=== PATIENT | female | born 1985 | race African-American/Black ===

== ENCOUNTER 2017-05-25 22:59 | Emergency (ER) | payer MEDICAID, MEDICARE, OTHER ==
[2017-05-25 23:00] VITALS: BP 128/65; PULSE 78; RESP 16; TEMP 98.6; O2SAT 100
--- NOTE | 2017-05-26 00:23 | PD ---
HPI Chief Complaint: Injury Time Seen by Provider: 00:12 Travel History International Travel<30 days: No Contact w/Intl Traveler<30days: No Traveled to known affect area: No History of Present Illness HPI 31-year-old female here for a left great toe partial nail avulsion secondary to trauma. Patient states she came to the ER because it did not look right and was bleeding. History Past Medical Histgory Hx Cancer: No Hx Chemotherapy: No Hx Radiation Therapy: No Social History Alcohol Use: No Tobacco Use: Yes (5CIG A DAY ) Allergies-Medications (Allergen,Severity, Reaction): Coded Allergies: amoxicillin (Unverified Allergy, Severe, HIVES, SWELLING, 04/16/17) Reported Meds & Prescriptions Reported Meds & Active Scripts Active No Active Prescriptions or Reported Medications Review of Systems Except as stated in HPI: all other systems reviewed are Neg Skin: Positive Change in nails Physical Exam Narrative GENERAL: Well-nourished, well-developed pleasant female SKIN: Focused skin assessment warm/dry. Left great toe with crusting blood and a partially avulsed distal portion of the nail. No exudate or serous fluid noted. HEAD: Normocephalic. EYES: No scleral icterus. No injection or drainage. CARDIOVASCULAR: Regular rate and rhythm without murmurs, gallops, or rubs. RESPIRATORY: Breath sounds equal bilaterally. No accessory muscle use. GASTROINTESTINAL: Abdomen soft, non-tender, nondistended. MUSCULOSKELETAL: No cyanosis, or edema. left great toe without pain, tenderness , or edema except at affected portion of the nail. FROM of toes without crepitus. Data Data Last Documented VS Vital Signs Date Time Temp Pulse Resp B/P (MAP) Pulse Ox O2 Delivery O2 Flow Rate FiO2 05/25/17 23:00 98.6 78 16 128/65 (86) 100 Room Air MDM Medical Screen Exam Complete: Yes Emergency Medical Condition: No Differential Diagnosis Left great toenail avulsion Narrative Course 31-year-old pleasant female presents to the ER with a left great toenail avulsion. She presents to the ED because she was concerned about the 'way it looks' and concern for infection. Exam demonstrated a partially avulsed toenail with bleeding controlled without exudate and had only mild tenderness to the nail upon palpation. I reassured the patient and explained the proper care for her toenail, that is, to keep the nail clean and dry and return to her primary care physician if she noted any pus, swelling, or increased pain. A medical screening exam was performed: At the time of evaluation the presenting medical condition was determined not to be of an emergent nature. The patient was given the option of receiving additional care, but declined. Patient was given options for additional community resources from which to obtain care. The Patient Has Been advised to seek medical attention for their presenting complaint. The patient has been advised to return to the ER at any time if an emergent condition develops. Primary Impression: Nail avulsion, toe Qualified Codes: S91.209A - Unspecified open wound of unspecified toe(s) with damage to nail, initial encounter Additional Instructions: Keep toenail dry and clean. Return to PCP if worsening or persistent pain. Scripts No Active Prescriptions or Reported Meds Disposition: 01 DISCHARGE HOME Condition: Stable Sameera Carrion May 26, 2017 00:23
== END 2017-05-26 10:15 | disposition left against medical advice (07) ==
LOC: NEPD 22:59
DX: S91.209A Unspecified open wound of unspecified toe(s) with damage to nail, initial encounter (principal); X58.XXXA Exposure to other specified factors, initial encounter
CPT/HCPCS: 99281

== ENCOUNTER 2017-06-14 11:21 | Emergency (ER) | payer MEDICAID, MEDICARE ==
--- NOTE | 2017-06-14 13:44 | PD ---
HPI Chief Complaint Painful contractions Date Seen: Jun 14, 2017 Time Seen: 12:15 (Camila Stoner MD R1) Travel History International Travel<30 Days: No Contact w/Intl Traveler<30Days: No (Camila Stoner MD R1) History of Present Illness HPI Patient is a 31-year-old at 38 weeks. States that she started having contractions 5-6 minutes apart last night, no fluid leakage. Denies vaginal bleeding. Endorses movement. GBS negative. States that she had bleeding early in . All subsequent ultrasounds have been normal. Weeks Gestation: 38 Para: 5 : 6 (Camila Stoner MD R1) History Past Medical History Medical History: Denies Significant Hx (Camila Stoner MD) Obstetric History Obstetric History Vaginal deliveries 5:2014, 2013, 2006, 2003, 2003. No history of or other complications. (Camila Stoner MD) Family History Family History: Negative (Camila Stoner MD) Social History Alcohol Use: No Tobacco Use: Yes (smoking for 3.7 pack years) Substance Abuse: No (Camila Stoner MD) Allergies-Medications (Allergen,Severity, Reaction): Coded Allergies: amoxicillin (Unverified Allergy, Severe, HIVES, SWELLING, 04/16/17) Home Meds No Active Prescriptions or Reported Meds Physical Exam Narrative GENERAL: Well-nourished, well-developed patient. SKIN: Warm and dry. HEAD: Normocephalic and atraumatic. EYES: No scleral icterus. No injection or drainage. CARDIOVASCULAR: Regular rate and rhythm without murmurs, gallops, or rubs. RESPIRATORY: Breath sounds equal bilaterally. No accessory muscle use. ABDOMEN/GI: Abdomen soft, non-tender, bowel sounds present, no rebound, no guarding Gravid to 38weeks size GENITOURINARY: External Genitalia: intact and normal in appearance Cervix: Posterior Dilatation: 1cm Effacement: Thick Station: -2 Presentation: Cephalic Membranes: Intact Uterine Contractions: Irregular FHT's: Category: 1 Baseline: 140 Reactive: Yes Variability: Moderate Decels: None EXTREMITIES: No cyanosis or edema. NEUROLOGICAL: Awake and alert. Motor and sensory grossly within normal limits. Normal speech. (Camila Stoner MD R1) MDM Interpretation(s) Patient is a at 38 weeks presenting with painful contractions. On cervical exam 1 cm/thick/-2. FHTs reassuring. Not in active labor. Will discharge home with labor precautions. Plan D/C today. (Camila Stoner MD R1) Diagnosis Diagnosis: Primary Impression: with 38 completed weeks gestation Disposition: 01 DISCHARGE HOME Condition: Stable Scripts No Active Prescriptions or Reported Meds Collaborating MD Comments Seen and examined with resident Agree with management (Digna Gutierrez MD) Camila Stoner MD R1 Jun 14, 2017 13:44 Digna Gutierrez MD Jun 17, 2017 09:02
== END 2017-06-14 14:04 | disposition home or self-care (01) ==
LOC: HOBED 11:21
DX: O26.93 Pregnancy related conditions, unspecified, third trimester (principal); O99.333 Smoking (tobacco) complicating pregnancy, third trimester; Z3A.38 38 weeks gestation of pregnancy

== ENCOUNTER 2017-06-15 15:10 | Emergency (ER) | payer MEDICAID ==
[~2017-06-15] VITALS: Ht 160 cm; Wt 93.9 kg
--- NOTE | 2017-06-15 15:44 | PD ---
HPI Chief Complaint 38 weeks and 1 day ; Uterine contractions Travel History International Travel<30 Days: No Contact w/Intl Traveler<30Days: No Known Affected Area: No History of Present Illness HPI Pt is a 31 yo at 38 weeks and 1 day. Pt presents with uterine contractions stronger and more frequent today. Care with Wendy Rubi. Pt states she was seen on OB ED yesterday and told she was 4cm dilated. Denies any vaginal bleeding or discharge. Active movements. Weeks Gestation: 38 Para: 5 : 6 History Past Medical History Narrative Medical Asthma Obstetric History Obstetric History 5 prior term incomplcated vaginal deliveries. Largest was 8lbs at Past Surgical History Narrative Surgical D&C Family History Family History: Negative Social History Alcohol Use: No Tobacco Use: Yes (09/05 PPD) Substance Abuse: No Allergies-Medications (Allergen,Severity, Reaction): Coded Allergies: amoxicillin (Unverified Allergy, Severe, HIVES, SWELLING, 04/16/17) Home Meds No Active Prescriptions or Reported Meds Review of Systems Except as stated in HPI: all other systems reviewed are Neg Physical Exam Narrative GENERAL: Well-nourished, well-developed patient. SKIN: Warm and dry. HEAD: Normocephalic and atraumatic. EYES: No scleral icterus. No injection or drainage. ENT: No nasal drainage noted. Mucous membranes pink. Airway patent. NECK: Supple, trachea midline. No JVD. CARDIOVASCULAR: Regular rate and rhythm without murmurs, gallops, or rubs. RESPIRATORY: Breath sounds equal bilaterally. No accessory muscle use. BREASTS: Bilateral exam showed no masses , no retractions, no nipple discharge. ABDOMEN/GI: Abdomen soft, non-tender, bowel sounds present, no rebound, no guarding Gravid to [38] weeks size GENITOURINARY: External Genitalia: intact and normal in appearance Cervix: [soft] Dilatation: [2-3cm] Effacement: [50%] Station: [-] Presentation: [vertex-] Membranes: [intact] Uterine Contractions: [8 minutes] FHT's: Category: [1] Baseline: [-] Reactive: [-] Variability: [-] Decels: [none] EXTREMITIES: No cyanosis or edema. BACK: Nontender without obvious deformity. No CVA tenderness. NEUROLOGICAL: Awake and alert. Motor and sensory grossly within normal limits. Five out of 5 muscle strength in all muscle groups. Normal speech. Data Data Vital Signs Reviewed: Yes [facility] Medical Record Reviewed: Yes Plan Pt is a 31 yo at 38 weeks and 1 day with c/o uterine contractions. Cervical exam is 2-3 /50%/-3, and contractions every 8 minutes. Pt re-examined again after more than 1 hour. Cervix unchanged 2-3cm/50/-2 Contractions spaced out even more. Plan: Prodromal labor. Will DC home with labor precautions. Diagnosis Diagnosis: Primary Impression: 38 weeks gestation of Additional Impression: False labor after 37 completed weeks of gestation Disposition: DISCHARGE HOME Scripts No Active Prescriptions or Reported Meds Damian Dorado MD Jun 15, 2017 15:44
== END 2017-06-15 17:34 | disposition home or self-care (01) ==
LOC: HOBED 15:10
DX: O47.1 False labor at or after 37 completed weeks of gestation (principal); Z3A.38 38 weeks gestation of pregnancy; O99.333 Smoking (tobacco) complicating pregnancy, third trimester; O26.93 Pregnancy related conditions, unspecified, third trimester; J45.909 Unspecified asthma, uncomplicated
CPT/HCPCS: 59025

== ENCOUNTER 2017-06-19 19:59 | Emergency (ER) | payer MEDICAID ==
--- NOTE | 2017-06-19 21:12 | PD ---
HPI Chief Complaint c/o CTXs no bleeding or SROM Date Seen: Jun 19, 2017 Time Seen: 21:00 Travel History International Travel<30 Days: No Contact w/Intl Traveler<30Days: No Known Affected Area: No History of Present Illness HPI 31 y/o BF 38 wks c/o CTXs , no bleeding or SROM , FHR reactive CTXs q 3-4 min Weeks Gestation: 38 Para: 5 : 6 History Obstetric History Obstetric History 5 vag del Social History Alcohol Use: No Tobacco Use: No Substance Abuse: No Allergies-Medications (Allergen,Severity, Reaction): Coded Allergies: amoxicillin (Unverified Allergy, Severe, HIVES, SWELLING, 04/16/17) Home Meds No Active Prescriptions or Reported Meds Review of Systems General / Constitutional: No: Fever, Weight Gain, Chills, Other Eyes: No: Diploplia, Blurred Vision, Visual changes, Pain, Photophobia HENT: No: Headaches, Vertigo, Lightheadedness Cardiovascular: No: Irregular Rhythm, Chest Pain or Discomfort, Palpitations, Tachycardia, Syncope, Varicosities, Edema, Cyanosis Respiratory: No: Cough, Short of Breath, Other Gastrointestinal: Abdominal Pain, No: Nausea, Vomiting, Diarrhea Genitourinary: No: Decreased Urinary Output, Oliguria Musculoskeletal: No: Limited ROM, Weakness, Cramping, Edema, Pain Skin: No Rash, No Itching, No Dryness, No Lumps, No Change in Pigmentation, No Change in Nails, No Alopecia, No Lesions Neurologic: No: Weakness, Dizziness, Syncope, Focal Abnormalities, Coordination Problem, Headache, Slurred Speech, Seizures Psychiatric: No: Depression, Suicidal Ideations, Homicidal Ideation Endocrine: No: Heat Intolerance, Cold Intolerance, Polydipsia, Polyuria, Other Physical Exam Narrative GENERAL: Well-nourished, well-developed patient. SKIN: Warm and dry. HEAD: Normocephalic and atraumatic. EYES: No scleral icterus. No injection or drainage. ENT: No nasal drainage noted. Mucous membranes pink. Airway patent. NECK: Supple, trachea midline. No JVD. CARDIOVASCULAR: Regular rate and rhythm without murmurs, gallops, or rubs. RESPIRATORY: Breath sounds equal bilaterally. No accessory muscle use. BREASTS: Bilateral exam showed no masses , no retractions, no nipple discharge. ABDOMEN/GI: Abdomen soft, non-tender, bowel sounds present, no rebound, no guarding Gravid to [-38] weeks size Fundal Height: [-38] GENITOURINARY: External Genitalia: intact and normal in appearance BUS glands: [-] Cervix: [no change-] Dilatation: [2-] Effacement: [thick-] Station: [-3] Presentation: [vtx-] Membranes: [intact ] Uterine Contractions: [-q 3-4 min] FHT's: Category: [-1] Baseline: [133-] Reactive: [yes-] Variability: [mod-] Decels: [-0] EXTREMITIES: No cyanosis or edema. BACK: Nontender without obvious deformity. No CVA tenderness. NEUROLOGICAL: Awake and alert. Motor and sensory grossly within normal limits. Five out of 5 muscle strength in all muscle groups. Normal speech. Data Data Orders Orders Meperidine Inj (Demerol Inj) (06/19/17 21:15) Promethazine Inj (Phenergan Inj) (06/19/17 21:15) MDM Interpretation(s) 38 wk IUP with CTXs but no change in cervix since last check , NST reactive , CTXs q 3-4 min Plan Demerol 50 mg / phenergan 25 mg IM , home to rest return for worsening pain Diagnosis Diagnosis: Primary Impression: False labor after 37 weeks of gestation without delivery Disposition: 01 DISCHARGE HOME Condition: Stable Scripts No Active Prescriptions or Reported Meds John Leung II, MD Jun 19, 2017 21:12
[2017-06-19] MEDS ORDERED: MEPERIDINE HCL 50 MG/ML VIAL IM ONE (21:15)
[2017-06-19] MEDS ORDERED: PROMETHAZINE INJ 25 MG/ML VIAL IM ONE (21:15)
== END 2017-06-19 22:42 | disposition home or self-care (01) ==
LOC: HOBED 19:59
DX: O47.1 False labor at or after 37 completed weeks of gestation (principal); Z3A.38 38 weeks gestation of pregnancy
CPT/HCPCS: 59025; 96372; 99284; J2175; J2550

== ENCOUNTER 2017-06-23 13:09 | Inpatient (IN) | payer MEDICAID ==
[2017-06-23] VITALS (11 sets, daily range): BP systolic 109–126; BP diastolic 52–69; PULSE 66–106; RESP 18–20; TEMP 98.2–98.8
[~2017-06-23] VITALS: Ht 165.1 cm; Wt 98.0 kg
[2017-06-23] MEDS ORDERED: CITRIC ACID-SODIUM CITRATE LIQ 30 ML UDC PO SCH (14:15)
[2017-06-23] MEDS ORDERED: SODIUM CHLORID 0.9% 500 ML INJ 500 ML IV PRN (14:15)
[2017-06-23] MEDS ORDERED: LIDOCAINE HCL 1% 50 ML VIAL I-DERMAL PRN (14:15)
[2017-06-23] MEDS ORDERED: MINERAL OIL 10 ML VIAL TOPICAL PRN (14:15)
[2017-06-23] MEDS ORDERED: LIDOCAINE HCL 1% 50 ML VIAL INFIL PRN (14:15)
[2017-06-23] MEDS ORDERED: ONDANSETRON HCL 4 MG/2 ML VIAL IV PUSH PRN (14:15)
--- NOTE | 2017-06-23 14:17 | PD ---
HPI Chief Complaint 31 y/o F , at 39w3, presents s/p SROM at 3AM this morning. Fluid was clear. Pt feels cxns q10 minutes. +FM Pt has had care w/ Wendy Robles. Date Seen: Jun 23, 2017 (Sushma Moralez MD R2) Travel History International Travel<30 Days: No Contact w/Intl Traveler<30Days: No Known Affected Area: No (Sushma Moralez MD) History Past Medical History Medical History: Denies Significant Hx (Sushma Moralez MD) Obstetric History Obstetric History care w/ wendy robles subchorionic bleed in 1st trimester x 5 - last VD in 2014 - biggest baby 8lb (Sushma Moralez MD) Past Surgical History Surgical History: No Previous Surgery (Sushma Moralez MD) Family History Family History: Negative (Sushma Moralez MD) Social History Narrative Social History smoked 1/2 ppd during this (starting at 6months) marijuana BEFORE denies alcohol use denies other drug use (Sushma Moralez MD) Allergies-Medications (Allergen,Severity, Reaction): Coded Allergies: amoxicillin (Unverified Allergy, Severe, HIVES, SWELLING, 06/23/17) Home Meds Reported Medications Ranitidine (Zantac) 150 Mg Tab, 150 MG PO BID for Reduce Stomach Acid, #60 TAB 0 Refills 06/23/17 Review of Systems Except as stated in HPI: all other systems reviewed are Neg (Sushma Moralez MD) Physical Exam Narrative GENERAL: Well-nourished, well-developed patient. SKIN: Warm and dry. HEAD: Normocephalic and atraumatic. EYES: No scleral icterus. No injection or drainage. ENT: No nasal drainage noted. Mucous membranes pink. Airway patent. NECK: Supple, trachea midline. No JVD. CARDIOVASCULAR: Regular rate and rhythm without murmurs, gallops, or rubs. RESPIRATORY: Breath sounds equal bilaterally. No accessory muscle use. BREASTS: Bilateral exam showed no masses , no retractions, no nipple discharge. ABDOMEN/GI: Abdomen soft, non-tender, bowel sounds present, no rebound, no guarding Gravid to [-] weeks size Fundal Height: [-] GENITOURINARY: External Genitalia: intact and normal in appearance BUS glands: [-] Cervix: [-] Dilatation: [-] Effacement: [-] Station: [-] Presentation: [-] Membranes: [intact or ruptured] Uterine Contractions: [-] FHT's: Category: [-] Baseline: [-] Reactive: [-] Variability: [-] Decels: [-] EXTREMITIES: No cyanosis or edema. BACK: Nontender without obvious deformity. No CVA tenderness. NEUROLOGICAL: Awake and alert. Motor and sensory grossly within normal limits. Five out of 5 muscle strength in all muscle groups. Normal speech. (Sushma Moralez MD R2) Data Data Vital Signs Reviewed: Yes Orders Orders Ob (2e) Additional Admit Info (06/23/17 13:53) Admit To Inpatient (06/23/17 ) Code Status (06/23/17 14:15) Vital Signs (Adult) .Per protocol (06/23/17 14:15) Heart (06/23/17 14:15) Amnioinfusion (06/23/17 14:15) Urinary Catheter Management .ONCE (06/23/17 14:15) Diet Npo (06/23/17 Dinner) Lactated Ringer's 1000 Ml Inj (Lr 1000 M (06/23/17 14:15) Lactated Ringer's 1000 Ml Inj (Lr 1000 M (06/23/17 14:15) Sodium Chlorid 0.9% 500 Ml Inj (Ns 500 M (06/23/17 14:15) Sodium Chlor 0.9% 1000 Ml Inj (Ns 1000 M (06/23/17 14:35) Lidocaine 1% Inj (50 Ml) (Xylocaine 1% I (06/23/17 14:15) Citric Acid-Sodium Citrate Liq (Bicitra (06/23/17 14:15) Ondansetron Inj (Zofran Inj) (06/23/17 14:15) Fentanyl Inj (Fentanyl Inj) (06/23/17 14:15) Fentanyl Inj (Fentanyl Inj) (06/23/17 14:15) Complete Blood Count With Diff (06/23/17 14:15) Hold Clot (06/23/17 14:15) Abo/Rh Blood Type (06/23/17 14:15) Urinalysis - C+S If Indicated (06/23/17 14:15) Resp Oxygen Non Rebreathe Mask (06/23/17 ) ^ Epidural / Intrathecal Infus (06/23/17 14:15) Oxytocin 30 Units-500ml Premix (Pitocin (06/23/17 14:15) Lidocaine 1% Inj (50 Ml) (Xylocaine 1% I (06/23/17 14:15) Light Mineral Oil (Muri-Lube Oil) (06/23/17 14:15) Inpatient Certification (06/23/17 ) Specimen To Be Collected PRN (06/23/17 14:15) (Sushma Moralez MD R2) [facility] Medical Record Reviewed: Yes (Sushma Moralez MD R2) Attending Attestation Patient seen and evaluated with resident under direct supervision, agree with assessment and plan. (Vel Lanza MD) Sushma Moralez MD R2 Jun 23, 2017 14:17 Vel Lanza MD Jun 23, 2017 17:24
[2017-06-23] MEDS ORDERED: LACTATED RINGER'S 1000 ML INJ 1,000 ML IV PRN (14:30)
[2017-06-23] MEDS ORDERED: OXYTOCIN 30 UNITS-500ML PREMIX 500 ML IV ONE (14:30)
[2017-06-23] MEDS ORDERED: LACTATED RINGER'S 1000 ML INJ 1,000 ML IV SCH (14:30)
--- NOTE | 2017-06-23 14:30 | HHI.HP ---
History & Physical H&P HPI HPI Chief Complaint 31 y/o F , at 39w3, presents s/p SROM at 3AM this morning. Fluid was clear. Pt feels cxns q10 minutes. +FM Pt has had care w/ Wendy Robles. Date Seen: Jun 23, 2017 Travel History International Travel<30 Days: No Contact w/Intl Traveler<30Days: No Known Affected Area: No History (Limited) History Past Medical History Medical History: Denies Significant Hx Obstetric History Obstetric History care w/ wendy robles subchorionic bleed in 1st trimester x 5 - last VD in 2014 - biggest baby 8lb Past Surgical History Surgical History: No Previous Surgery Family History Family History: Negative Social History Narrative Social History smoked 1/2 ppd during this (starting at 6months) marijuana BEFORE denies alcohol use denies other drug use Allergies-Medications Allergies-Medications (Allergen,Severity, Reaction): Coded Allergies: amoxicillin (Unverified Allergy, Severe, HIVES, SWELLING, 06/23/17) Home Meds No Active Prescriptions or Reported Meds ROS Review of Systems Except as stated in HPI: all other systems reviewed are Neg Physical Exam Physical Exam Narrative GENERAL: Well-nourished, well-developed patient. SKIN: Warm and dry. HEAD: Normocephalic and atraumatic. EYES: No scleral icterus. No injection or drainage. ENT: No nasal drainage noted. Mucous membranes pink. Airway patent. NECK: Supple, trachea midline. No JVD. CARDIOVASCULAR: Regular rate and rhythm without murmurs, gallops, or rubs. RESPIRATORY: Breath sounds equal bilaterally. No accessory muscle use. BREASTS: Bilateral exam showed no masses , no retractions, no nipple discharge. ABDOMEN/GI: Abdomen soft, non-tender, bowel sounds present, no rebound, no guarding Gravid to [-] weeks size Fundal Height: [-] GENITOURINARY: External Genitalia: intact and normal in appearance BUS glands: [-] Cervix: [-] Dilatation: [-] Effacement: [-] Station: [-] Presentation: [-] Membranes: [intact or ruptured] Uterine Contractions: [-] FHT's: Category: [-] Baseline: [-] Reactive: [-] Variability: [-] Decels: [-] EXTREMITIES: No cyanosis or edema. BACK: Nontender without obvious deformity. No CVA tenderness. NEUROLOGICAL: Awake and alert. Motor and sensory grossly within normal limits. Five out of 5 muscle strength in all muscle groups. Normal speech. Data Data Data Vital Signs Reviewed: Yes Orders Orders Ob (2e) Additional Admit Info (06/23/17 13:53) Admit To Inpatient (06/23/17 ) Code Status (06/23/17 14:15) Vital Signs (Adult) .Per protocol (06/23/17 14:15) Heart (06/23/17 14:15) Amnioinfusion (06/23/17 14:15) Urinary Catheter Management .ONCE (06/23/17 14:15) Diet Npo (06/23/17 Dinner) Lactated Ringer's 1000 Ml Inj (Lr 1000 M (06/23/17 14:15) Lactated Ringer's 1000 Ml Inj (Lr 1000 M (06/23/17 14:15) Sodium Chlorid 0.9% 500 Ml Inj (Ns 500 M (06/23/17 14:15) Sodium Chlor 0.9% 1000 Ml Inj (Ns 1000 M (06/23/17 14:35) Lidocaine 1% Inj (50 Ml) (Xylocaine 1% I (06/23/17 14:15) Citric Acid-Sodium Citrate Liq (Bicitra (06/23/17 14:15) Ondansetron Inj (Zofran Inj) (06/23/17 14:15) Fentanyl Inj (Fentanyl Inj) (06/23/17 14:15) Fentanyl Inj (Fentanyl Inj) (06/23/17 14:15) Complete Blood Count With Diff (06/23/17 14:15) Hold Clot (06/23/17 14:15) Abo/Rh Blood Type (06/23/17 14:15) Urinalysis - C+S If Indicated (06/23/17 14:15) Resp Oxygen Non Rebreathe Mask (06/23/17 ) ^ Epidural / Intrathecal Infus (06/23/17 14:15) Oxytocin 30 Units-500ml Premix (Pitocin (06/23/17 14:15) Lidocaine 1% Inj (50 Ml) (Xylocaine 1% I (06/23/17 14:15) Light Mineral Oil (Muri-Lube Oil) (06/23/17 14:15) Inpatient Certification (06/23/17 ) Specimen To Be Collected PRN (06/23/17 14:15) MDM MDM Medical Record Reviewed: Yes Scripts No Active Prescriptions or Reported Meds Sushma Moralez MD R2 Jun 23, 2017 14:17 (Sushma Moralez MD R2) H&P Patient seen and evaluated with resident under direct supervision, agree with assessment and plan. (Vel Lanza MD) Sushma Moralez MD R2 Jun 23, 2017 14:30 Vel Lanza MD Jun 23, 2017 17:25
[2017-06-23] MEDS ORDERED: ZANT150T2 PO (14:32)
[2017-06-23] MEDS ORDERED: SODIUM CHLOR 0.9% 1000 ML INJ 1,000 ML IV PRN (14:35)
[2017-06-23] MEDS ORDERED: OXYTOCIN 30 UNITS-500ML PREMIX 500 ML IV PRN (15:00)
[2017-06-23] MEDS ORDERED: OXYTOCIN 30 UNITS-500ML PREMIX 500 ML IV SCH ×3 (15:00→19:30)
[2017-06-23 15:59] LABS: BACTERIA, URINE FEW /hpf; BLOOD, URINE SMALL (NEG); COMMENT (UR) CULT NOT INDICATED; CULTURE IF INDICATED CULT NOT INDICATED; GLUCOSE,URINE NEG (NEG); KETONE, URINE NEG (NEG); MUCUS URINE FEW /lpf (OCC); NITRITE,URINE NEG (NEG); SQUAMOUS EPITHELIAL CELL URINE 9 /hpf (0-5); URINE COLOR YELLOW (YELLW/STRAW)
[2017-06-23] MEDS ORDERED: MEASLES, MUMPS, RUBELLA VACCINE 0.5 ML VIAL SQ ONE (16:00)
[2017-06-23] MEDS ORDERED: DIPHTH/TETANUS/ACEL PERTUSSIS (BOOSTER) 0.5 ML VIAL/PFS IM ONE (16:00)
[2017-06-23 16:06] LABS: AUTOMATED NEUTROPHIL # 11.2 TH/MM3 (1.8-7.7); BASOPHIL % 0.2 % (0.0-2.0); EOSINOPHIL # 0.1 TH/MM3 (0-0.4); EOSINOPHIL % 0.8 % (0.0-4.0); HEMATOCRIT 31.1 % (35.0-46.0); HEMO FLAGS DIFF FINAL; LYMPH % 18.6 % (9.0-44.0); LYMPHOCYTE # 2.8 TH/MM3 (1.0-4.8); MEAN CELL VOLUME 76.1 FL (80.0-100.0); MEAN CORPUSCULAR HEMOGLOBIN 26.4 PG (27.0-34.0); MEAN CORPUSCULAR HGB CONC 34.6 % (32.0-36.0); MONO % 5.7 % (0.0-8.0); NEUT % 74.7 % (16.0-70.0); PLATELET COUNT 250 TH/MM3 (150-450); RED BLOOD COUNT 4.09 MIL/MM3 (4.00-5.30); RED CELL DISTRIBUTION WIDTH 16.2 % (11.6-17.2)
--- NOTE | 2017-06-23 19:26 | PD.OB.DELI ---
Weeks gestation: 39 Gest age assessed date: Jun 23, 2017 Gest age assessed time: 19:25 Pt started active labor?: Yes Active labor start date: Jun 23, 2017 Active labor start time: 18:00 Medical induction of labor?: No Artificial rupture of membrane: No Anesthesia: None Episiotomy: None Vaginal Delivery: Normal, Spontaneous Presentation: Occiput anterior Nuchal Cord: None Delayed cord clamping (45 sec): Yes : Female Delivery date: Jun 23, 2017 Delivery time: 19:12 One Minute : 9 Five Minute : 9 Placenta: Spontaneous delivery, Intact, 3 vessel cord Laceration: No lacerations Estimated blood loss: 300 Additional Information The patient progressed rapidly through active labor and pushed with just 1 contraction to expel the OA vertex over an intact perineum. There was no delay for the shoulders which are delivered by maternal effort. The was passed to maternal abdomen where delayed cord clamping was accomplished. The placenta passed spontaneously with massage and IV Pitocin solution. Hemostasis was obtained with fundal massage. Vel Lanza MD Jun 23, 2017 19:26
[2017-06-23] MEDS ORDERED: WITCH HAZEL 50%/GLYCERIN 12.5% 40 PAD JAR TOPICAL PRN (19:30)
[2017-06-23] MEDS ORDERED: SODIUM CHLORIDE 0.9% FLUSH 10 ML FLUSH IV FLUSH PRN (19:30)
[2017-06-23] MEDS ORDERED: ALUMINUM/MAGNESIUM/SIMETH 30 ML CUP PO PRN (19:30)
[2017-06-23] MEDS ORDERED: BENZOCAINE 20% TOPICAL SPRAY 60 ML CAN TOPICAL PRN (19:30)
[2017-06-23] MEDS ORDERED: ONDANSETRON ODT 4 MG TAB PO PRN (19:30)
[2017-06-23] MEDS ORDERED: ZOLPIDEM TARTRATE 5 MG TAB PO PRN (19:30)
[2017-06-23] MEDS ORDERED: ACETAMINOPHEN 325 MG TAB PO PRN (19:30)
[2017-06-23] MEDS ORDERED: OXYTOCIN 10 UNIT/ML AMP ONE (19:40)
[2017-06-23] MEDS: IBUPROFEN 600 MG TAB PO PRN (19:51)
[2017-06-23] MEDS: DOCUSATE SODIUM 50 MG/SENNA 8.6 MG TAB PO PRN (19:52)
[2017-06-23] MEDS ORDERED: SODIUM CHLORIDE 0.9% FLUSH 10 ML FLUSH IV FLUSH SCH (21:00)
[2017-06-23] MEDS: oxyCODONE/ACETAMINOPHEN 5 MG/325 MG TAB PO PRN (23:42)
[2017-06-24] MEDS: oxyCODONE/ACETAMINOPHEN 5 MG/325 MG TAB PO PRN ×4 (03:53→22:20)
[2017-06-24] MEDS: IBUPROFEN 600 MG TAB PO PRN ×3 (03:53→20:26)
[2017-06-24 08:55] VITALS: BP 105/69; PULSE 66; RESP 17; TEMP 97.7
[2017-06-24] MEDS: DOCUSATE SODIUM 50 MG/SENNA 8.6 MG TAB PO PRN (09:37)
--- NOTE | 2017-06-24 11:28 | HHI.OB ---
Subjective Post Day: 1 Remarks 31 year old female s/p at 39/3wks gestation, PPD1. AFVSS. Patient reports she is feeling well. Bleeding is decreasing and pain is well- controlled. She is breast feeding and bonding well with baby. Ambulating without difficulties. She is tolerating a diet without nausea or vomiting. She has had a bowel movement. She has passed gas. Denies chest pain, dysuria, shortness of breath, or calf pain. Objective Vitals/I&O Vital Signs Date Time Temp Pulse Resp B/P (MAP) Pulse Ox O2 Delivery O2 Flow Rate FiO2 06/24/17 08:55 97.7 66 17 105/69 (81) 06/23/17 22:20 98.5 20 06/23/17 22:20 66 117/64 (81) 06/23/17 20:15 98.5 06/23/17 20:01 79 110/52 (71) 06/23/17 20:00 18 06/23/17 19:46 85 109/57 (74) 06/23/17 19:45 18 06/23/17 19:36 126/64 (84) 06/23/17 19:36 99 06/23/17 19:24 20 06/23/17 19:23 98.8 06/23/17 17:45 98.2 06/23/17 14:16 106 118/69 (85) Intake & Output 06/24/17 06/24/17 07:00 19:00 Intake Total 1200 ml Balance 1200 ml Intake IV Total 1200 ml Objective Remarks GENERAL: Well-nourished, well-developed patient. CARDIOVASCULAR: Regular rate and rhythm without murmurs, gallops, or rubs. RESPIRATORY: Breath sounds equal bilaterally. No accessory muscle use. ABDOMEN/GI: Abdomen soft, non-tender. Fundus: Firm, non-tender at umbilicus. GENITOURINARY: Light to moderate bleeding. EXTREMITIES: No cyanosis or edema, non-tender, without signs of DVT. Medications and IVs Current Medications Medications (Trade) Dose Ordered Sig/Onesimo Route Start Time Stop Time Status Last Admin (NS Flush) 2 ml BID IV FLUSH 06/23/17 21:00 (NS Flush) 2 ml UNSCH PRN IV FLUSH 06/23/17 19:30 Oxytocin 500 ml @ 100 mls/hr CONTINUOUS IV 06/23/17 19:30 06/25/17 00:29 (Tylenol) 650 mg Q4H PRN PO 06/23/17 19:30 06/23/17 19:52 (Motrin) 600 mg Q6H PRN PO 06/23/17 19:30 06/24/17 09:37 (Percocet 5-325 Mg) 1 tab Q4H PRN PO 06/23/17 19:30 06/24/17 03:53 (Percocet 5-325 Mg) 2 tab Q4H PRN PO 06/23/17 19:30 06/24/17 09:36 (Americaine 20% Top Spr) 1 spray Q4H PRN TOPICAL 06/23/17 19:30 (Tucks Pads) 1 applic QID PRN TOPICAL 06/23/17 19:30 (Susana-Colace) 2 tab Q12H PRN PO 06/23/17 19:30 06/24/17 09:37 (Ambien) 5 mg HS PRN PO 06/23/17 19:30 (Mag-Al Plus Susp Liq) 15 ml Q8H PRN PO 06/23/17 19:30 (Zofran Odt) 4 mg Q6H PRN PO 06/23/17 19:30 Assessment/Plan Assessment and Plan 31 yo female s/p , PPD 1 - AFVSS - Continue routine care - Motrin PRN pain - Encourage OOB - Pelvic rest x 6 wks. 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
[2017-06-25] MEDS: IBUPROFEN 600 MG TAB PO PRN ×3 (02:16→14:36)
[2017-06-25] MEDS: DOCUSATE SODIUM 50 MG/SENNA 8.6 MG TAB PO PRN (08:32)
[2017-06-25] MEDS: oxyCODONE/ACETAMINOPHEN 5 MG/325 MG TAB PO PRN (08:33)
[2017-06-25] MEDS ORDERED: NORE0.3513 PO (08:53)
--- NOTE | 2017-06-25 08:54 | HHI.DCPOC ---
Discharge Care Plan Diagnosis: (1) Vaginal delivery Report Symptoms to Your Doctor -Temperature above 100.5 degrees -Redness, of incision or excessive or foul smelling drainage -Unusual pain or calf pain -Increased vaginal bleeding -Painful or difficulty urinating -Feelings of extreme sadness or anxiety after 2 weeks Goals to Promote Your Health * To prevent worsening of your condition and complications * To maintain your health at the optimal level Directions to Meet Your Goals Take your medications as prescribed Follow your dietary instruction Follow activity as directed Ensure plenty of rest for recovery Drink fluids for hydration Keep your appointments as scheduled Take your immunizations and boosters as scheduled If your symptoms worsen call your PCP, if no PCP go to Urgent Care Center or Emergency Room Smoking is Dangerous to Your Health. Avoid second hand smoke Call the 24-hour crisis hotline for domestic abuse at Alina East MD R1 Jun 25, 2017 08:54
--- NOTE | 2017-06-25 09:15 | HHI.OB ---
Subjective Remarks 31 year old female s/p at 39/3wks gestation, PPD2. AFVSS. Patient reports she is feeling well. Bleeding is decreasing and pain is well- controlled. She is breast feeding and bonding well with baby. Ambulating without difficulties. She is tolerating a diet without nausea or vomiting. She has had a bowel movement. She has passed gas. Denies chest pain, dysuria, shortness of breath, or calf pain. Objective Objective Remarks GENERAL: Well-nourished, well-developed patient. CARDIOVASCULAR: Regular rate and rhythm without murmurs, gallops, or rubs. RESPIRATORY: Breath sounds equal bilaterally. No accessory muscle use. ABDOMEN/GI: Abdomen soft, non-tender. Fundus: Firm, non-tender at umbilicus. GENITOURINARY: Light to moderate bleeding. EXTREMITIES: No cyanosis or edema, non-tender, without signs of DVT. Medications and IVs Current Medications Medications (Trade) Dose Ordered Sig/Onesimo Route Start Time Stop Time Status Last Admin (NS Flush) 2 ml BID IV FLUSH 06/23/17 21:00 (NS Flush) 2 ml UNSCH PRN IV FLUSH 06/23/17 19:30 (Tylenol) 650 mg Q4H PRN PO 06/23/17 19:30 06/23/17 19:52 (Motrin) 600 mg Q6H PRN PO 06/23/17 19:30 06/25/17 08:32 (Percocet 5-325 Mg) 1 tab Q4H PRN PO 06/23/17 19:30 06/25/17 08:33 (Percocet 5-325 Mg) 2 tab Q4H PRN PO 06/23/17 19:30 06/24/17 09:36 (Americaine 20% Top Spr) 1 spray Q4H PRN TOPICAL 06/23/17 19:30 (Tucks Pads) 1 applic QID PRN TOPICAL 06/23/17 19:30 (Susana-Colace) 2 tab Q12H PRN PO 06/23/17 19:30 06/25/17 08:32 (Ambien) 5 mg HS PRN PO 06/23/17 19:30 (Mag-Al Plus Susp Liq) 15 ml Q8H PRN PO 06/23/17 19:30 (Zofran Odt) 4 mg Q6H PRN PO 06/23/17 19:30 Assessment/Plan Assessment and Plan 31 yo female s/p , PPD 2 - AFVSS - Continue routine care - Motrin PRN pain - Encourage OOB - Pelvic rest x 6 wks. - Contraception: OCP-progestin only, interested in tubal ligation and will talk to PITCH GATHERER - Anticipate D/C today Alina East MD R1 Jun 25, 2017 09:15
[2017-06-25 09:43] VITALS: RESP 16
== END 2017-06-25 18:13 | disposition home or self-care (01) | DRG 775 ==
LOC: HOBED 13:09 → H2EB 13:59 → H1EA 21:00
PROVIDERS: ADMIT Obstetrics & Gynecology; ATTEND Obstetrics & Gynecology
PROC: 10E0XZZ Delivery of Products of Conception, External Approach (ICD-10-PCS; principal; 2017-06-23)
DX: O42.02 Full-term premature rupture of membranes, onset of labor within 24 hours of rupture (principal); O99.334 Smoking (tobacco) complicating childbirth; F17.210 Nicotine dependence, cigarettes, uncomplicated; Z37.0 Single live birth; Z3A.39 39 weeks gestation of pregnancy
CPT/HCPCS: 59025; 81001; 84112; 85025; 86900; 86901; 90715; J2590; J3010; J7120